=== PATIENT | female | born 1980 | race Caucasian/White ===

== ENCOUNTER 2016-06-26 08:31 | Day surgery (SDC) | payer OTHER ==
[~2016-06-26] VITALS: Ht 165.1 cm; Wt 62.6 kg
[~2016-06-26 08:31] MED LIST: ADDERALL20 MG PO; ADVIL200 M1 PO; BCP; BUSPAR30 MG PO; CELEBREX50 MG PO; CLARITIN,ALAVAR10 MG PO; CLINDAMYCIN HC150 MG PO; CLINDAMYCIN HC300 MG PO; CORTISPORIN-TC10 M1 RIGHT EAR; FLEXERIL10 MG PO; LORCET 5-325 M1 EACH PO; LYRICA150 MG PO; MOTRIN600 MG PO; NAPROSYN500 MG PO; NAPROXEN500 MG PO; NEURONTIN300 MG PO; NO MEDS; NOHOMEMEDS; SEASONIQUE 01 TABLET PO; TIZANIDINE HCL4 MG PO; ULTRACET1 TABLET PO; ULTRAM50 MG PO; VICODIN,LORT1 TABLET PO; ZITHROMAX500 MG PO
== END 2016-06-26 10:30 | disposition home or self-care (01) ==
LOC: PAIN 08:31 → SDC 09:15 → PAIN 10:30
PROC: 3E0T3BZ Introduction of Anesthetic Agent into Peripheral Nerves and Plexi, Percutaneous Approach (ICD-10-PCS; principal; 2016-06-26)
PROC: 3E0T33Z Introduction of Anti-inflammatory into Peripheral Nerves and Plexi, Percutaneous Approach (ICD-10-PCS; 2016-06-26)
PROC: BR161ZZ Fluoroscopy of Lumbar Facet Joint(s) using Low Osmolar Contrast (ICD-10-PCS; 2016-06-26)
DX: M47.816 Spondylosis without myelopathy or radiculopathy, lumbar region (principal); M54.5 Low back pain; Z79.891 Long term (current) use of opiate analgesic; Z88.0 Allergy status to penicillin; F17.210 Nicotine dependence, cigarettes, uncomplicated
CPT/HCPCS: J1030; J2250; J3010; S0020